=== PATIENT | female | born 1990 | race Two or more races ===

== ENCOUNTER 2021-10-20 17:07 | Emergency (ER) | payer MEDICAID, OTHER ==
[~2021-10-20] VITALS: Ht 157.5 cm; Wt 90.7 kg
[2021-10-20] MEDS ORDERED: OXYCODONE W/ ACETAMINOPHEN 5/325MG TABLET PO ONE (18:00)
[2021-10-20] MEDS ORDERED: ONDANSETRON ODT 4 MG TAB PO ONE (18:00)
[2021-10-20] MEDS ORDERED: TETANUS-DIPTH-ACEL PERTUSSIS 0.5ML SYR Tdap IM ONE (18:00)
[2021-10-20] MEDS ORDERED: ONDANSETRON HCL 4 MG/2 ML VIAL IV ONE ×4 (18:15→23:30)
[2021-10-20] MEDS ORDERED: SODIUM CHLORIDE 0.9% 500 ML IV ONE (18:15)
[2021-10-20] MEDS ORDERED: HYDROmorphone HCL 2 MG/ML VL IV ONE ×3 (18:15→23:30)
[2021-10-20] MEDS ORDERED: ONDANSETRON HCL 4 MG/2 ML VIAL ONE (19:44)
[2021-10-20] MEDS ORDERED: MORPHINE SULFATE 4 MG/ML SYR/VIAL IV ONE (22:15)
[2021-10-20] MEDS ORDERED: ceFAZolin 1GM/50ML 100 ML IV ONE (22:45)
[2021-10-20] MEDS ORDERED: PIPERACILLIN-TAZO 4.5GM 100 ML IV ONE (23:30)
[2021-10-20] MEDS ORDERED: SODIUM CHLORIDE 0.9% 1,000 ML IV ONE (23:30)
[2021-10-21 01:16] VITALS: BP 123/90
== END 2021-10-21 01:32 | disposition short-term general hospital (02) ==
LOC: EDBD 17:07 → ER 17:07
DX: S82.202B Unspecified fracture of shaft of left tibia, initial encounter for open fracture type I or II (principal); S82.452B Displaced comminuted fracture of shaft of left fibula, initial encounter for open fracture type I or II; Z88.0 Allergy status to penicillin; Z20.822 Contact with and (suspected) exposure to COVID-19; W01.0XXA Fall on same level from slipping, tripping and stumbling without subsequent striking against object, initial encounter; Y93.89 Activity, other specified; Y92.89 Other specified places as the place of occurrence of the external cause; Y99.8 Other external cause status
CPT/HCPCS: 29515; 36415; 73590; 87426; 90471; 90715; 93005; 96361; 96365; 96366; 96367; 96375; 96376; 99285; J1170; J2270; J2405; J2543; J7030; J7040

== ENCOUNTER 2025-10-18 08:50 | Emergency (ER) | payer MEDICAID ==
[~2025-10-18] VITALS: Ht 170.2 cm; Wt 100.0 kg
--- NOTE | 2025-10-18 10:33 | ED.PDOC ---
History of Present Illness HPI Comments 35-year-old female presents to the ER with the chief complaint of pelvic pain. Patient reports on being post fall up gastric sleeve surgery 6.5 months ago and recently found a that she was on 10/15/2025(unknown time). Patient had a sudden onset of pelvic pain which radiated to the back last night associated with her passing a blood clot, when the patient use the bathroom earlier this morning she stated on seeing brown while wiping which prompted her to come to the ER. Denies any other symptoms at this time. Denies chills, fever, N/V/D, SOB, CP. No other associated symptoms, modifiers, recent injuries or sick contacts present at this time. Chief Complaint: Pelvic Pain Time Seen by MD: 10:30 Primary Care Provider: RICHIE Reviewed Notes: Nurses Notes, Medications, Allergies Allergies: Coded Allergies: Penicillins (Verified Allergy, Unknown, 10/20/21) Information Source: Patient Mode of Arrival: Ambulatory Severity: Moderate Timing: Hours Duration: Since onset, Hours Prehospital treatment: None Past Medical History PAST MEDICAL HISTORY: Denies Surgical History: Denies all surgeries CAN PILER History: Ovarian Cysts Family History Family History: Reviewed,noncontributory to illness Social History Smoker: Non-Smoker Alcohol: Denies ETOH Use Drugs: Denies Drug Use Lives In: Home Constitutional: denies: chills, diaphoresis, fatigue, fever, malaise, sweats, weakness, others EENTM: denies: blurred vision, double vision, ear bleeding, ear discharge, ear drainage, ear pain, ear ringing, eye pain, eye redness, hearing loss, mouth pain, mouth swelling, nasal discharge, nose bleeding, nose congestion, nose pain, photophobia, tearing, throat pain, throat swelling, voice changes, others Respiratory: denies: cough, hemoptysis, orthopnea, SOB at rest, shortness of breath, SOB with excertion, stridor, wheezing, others Cardiovascular: denies: chest pain, dizzy spells, diaphoresis, Dyspnea on exertion, edema, irregular heart beat, left arm pain, lightheadedness, palpitations, PND, syncope, others Gastrointestinal: denies: abdomen distended, abdominal pain, blood streaked bowels, constipated, diarrhea, dysphagia, difficulty swallowing, hematemesis, melena, nausea, poor appetite, poor fluid intake, rectal bleeding, rectal pain, vomiting, others Genitourinary: reports: , others (Pelvic pain, passed a blood clot yesterday and has the color brown while wiping); denies: abnormal vagina bleeding, burning, dyspareunia, dysuria, flank pain, frequency, hematuria, incontinence, pain, vagina discharge, urgency Neurological: denies: dizziness, fainting, headache, left sided numbness, left sided weakness, numbness, paresthesia, pre-existing deficit, right sided numbness, right sided weakness, seizure, speech problems, tingling, tremors, weakness, others Musculoskeletal: denies: back pain, gout, joint pain, joint swelling, muscle pain, muscle stiffness, neck pain, others Integumetry: denies: bruises, change in color, change in hair/nails, dryness, laceration, lesions, lumps, rash, wounds, others Allergic/Immunocompromised: denies: Difficulty Healing, Frequent Infections, Hives, Itching, others Hematologic/Lymphatic: denies: anemia, blood clots, easy bleeding, easy bruising, swollen glands, others Endocrine: denies: excessive hunger, excessive sweating, excessive thirst, excessive urination, flushing, intolerance to cold, intolerance to heat, unexplained weight gain, unexplained weight loss, others Psychiatric: denies: anxiety, bipolar disorder, depression, hopeless, panic disorder, schizophrenia, sleepless, suicidal, others All Other Systems: Reviewed and Negative Physical Exam Exam Comments Appears uncomfortable General Appearance: No Apparent Distress, Normal HEENT: Normal ENT Inspection, Pharynx Normal, TMs Normal Neck: Full Range of Motion, Non-Tender, Normal, Normal Inspection Respiratory: Chest Non-Tender, Lungs Clear, No Accessory Muscle Use, No Respiratory Distress, Normal Breath Sounds Cardiovascular: No Edema, No JVD, No Murmur, No Gallop, Normal Peripheral Pulses, Regular Rate/Rhythm Breast Exam: Deferred Gastrointestinal: No Organomegaly, Non Tender, No Pulsatile Mass, Normal Bowel Sounds, Soft Genitalia: Deferred Pelvic: Deferred Rectal: Deferred Extremities: No calf tenderness, Normal capillary refill, Normal inspection, Normal range of motion, Non-tender, No pedal edema Musculoskeletal : Apperance: Normal Neurologic: Alert, event marketing intern II-XII nml as Tested, No Motor Deficits, Normal Affect, Normal Mood, No Sensory Deficits Cerebellar Function: Normal Reflexes: Normal Skin: Dry, Normal Color, Warm Lymphatic: No Adenopathy Was a procedure done? Was a procedure done?: No Differential Dx Considerations may include: Threatened miscarriage, ectopic , normal X-Ray, Labs, Meds, VS Vital Signs Date Time Temp Pulse Resp B/P (MAP) Pulse Ox O2 Delivery O2 Flow Rate FiO2 10/18/25 14:29 97.6 96 16 124/95 (105) 97 97.6 10/18/25 11:24 98.3 77 16 121/83 (96) 99 98.3 10/18/25 09:27 Room Air* 0 21 10/18/25 09:27 98.8 74 19 127/87 (100) 99 98.8 10/18/25 08:54 98.2 104 16 170/108 98 98.2 Lab Test 10/18/25 10:34 10/18/25 10:28 Range/Units White Blood Count 7.9 4.4-10.8 10^3/uL Red Blood Count 4.84 4.0-5.20 10^6/uL Hemoglobin 13.2 12.2-16.2 g/dL Hematocrit 40.0 36.0-46.0 % Mean Corpuscular Volume 82.5 80.0-100.0 fL Mean Corpuscular Hemoglobin 27.3 L 28.0-32.0 pg Mean Corpuscular Hemoglobin Concent 33.1 32.0-36.0 g/dL Red Cell Distribution Width 13.4 11.8-14.3 % Platelet Count 323 140-450 10^3/uL Mean Platelet Volume 7.4 6.9-10.8 fL Neutrophils (%) (Auto) 65.7 37.0-80.0 % Lymphocytes (%) (Auto) 24.7 10.0-50.0 % Monocytes (%) (Auto) 8.7 0.0-12.0 % Eosinophils (%) (Auto) 0.4 0.0-7.0 % Basophils (%) (Auto) 0.5 0.0-2.0 % Neutrophils # (Auto) 5.2 1.6-8.6 10 ^3/uL Lymphocytes # (Auto) 1.9 0.4-5.4 10 ^3/uL Monocytes # (Auto) 0.7 0-1.3 10 ^3/uL Eosinophils # (Auto) 0 0-0.8 10 ^3/uL Basophils # (Auto) 0 0-0.2 10 ^3/uL Nucleated Red Blood Cells 0.1 % Sodium Level 140 136-145 mmol/L Potassium Level 3.3 L 3.5-5.1 mmol/L Chloride Level 102 98-107 mmol/L Carbon Dioxide Level 27 20-31 mmol/L Anion Gap 11 5-15 Blood Urea Nitrogen 6 L 9-23 mg/dL Creatinine 0.65 0.550-1.02 mg/dL Glomerular Filtration Rate Calc 118 >90 mL/min BUN/Creatinine Ratio 9.2 L 10.0-20.0 Serum Glucose 97 74-106 mg/dL Calcium Level 9.7 8.7-10.4 mg/dL Beta HCG, Quantitative 1501.1 H 1.5-4.2 mIU/mL Urine Color Light-yellow Yellow Urine Clarity Hazy H Clear Urine pH 6.5 5.0-9.0 Urine Specific [employer] 1.009 1.001-1.035 Urine Protein Negative Negative Urine Ketones Negative Negative Urine Blood 1+ H Negative /uL Urine Nitrite Negative Negative Urine Bilirubin Negative Negative Urine Urobilinogen Normal Negative mg/dL Urine Leukocyte Esterase Negative Negative /uL Urine RBC 2 0 - 4 /hpf Urine Microscopic WBC 1 0-5 /HPF Urine Squamous Epithelial Cells Few <5 /hpf Urine Bacteria Few H None Seen /hpf Urine Mucus Few None Seen Urine Glucose Normal Normal mg/dL Time of 1ST Reevaluation: 11:00 Reevaluation 1ST: Unchanged Patient Education/Counseling: Diagnosis, Treatment, Prognosis Family Education/Counseling: No Family Present SEPSIS Sepsis Screen Date sepsis recognized/suspect: Oct 18, 2025 Time Sepsis recognized/suspect: 0859 Recent Procedure: No On Antibiotic Therapy: No Respiratory Rate >20: No Heart Rate >90: Yes Temp<36 C (96.8 F) or >38.3 C: No SBP <90 or MAP <65 mmHG: No New Acute Mental Status Change: No Is the patient on CPAP, BIPAP,: No Physician Orders Ob Ultrasound Comp Less 14wks (10/18/25 12:42) Ob Trans Vaginal Us (10/18/25 14:15) Vital Signs Date Time Temp Pulse Resp B/P (MAP) Pulse Ox O2 Delivery O2 Flow Rate FiO2 10/18/25 14:29 97.6 96 16 124/95 (105) 97 97.6 10/18/25 11:24 98.3 77 16 121/83 (96) 99 98.3 10/18/25 09:27 Room Air* 0 21 10/18/25 09:27 98.8 74 19 127/87 (100) 99 98.8 10/18/25 08:54 98.2 104 16 170/108 98 98.2 Laboratory Tests Test 10/18/25 10:34 White Blood Count 7.9 10^3/uL (4.4-10.8) Departure 1 Departure Time of Disposition: 18:04 (Patient with threatened miscarriage versus ectopic . Ultrasound shows some started a dermoid complex collection on the left ovary. Patient with lower abdominal pain and . Patient has what appears to be a likely nonviable in the uterus. We will admit the patient for OB follow) Impression: Primary Impression: Ovarian mass, left Additional Impression: Threatened miscarriage Disposition: ADMITTED INPATIENT Admit to: Med Surg Condition: Guarded Critical Care Note Critical Care Time?: No Stability Stability form required: No I personally scribed for DESIRAE FAUST MD ([email or web address]) on 10/18/25 at 10:33. Electronically submitted by Martell Gao ([email or web address]). DESIRAE FAUST MD Oct 18, 2025 10:33
[2025-10-18 11:04] LABS: Chloride 102 mmol/L (98-107); Sodium 140 mmol/L (136-145)
[2025-10-18 11:05] LABS: Anion Gap 11 (5-15); Carbon Dioxide 27 mmol/L (20-31)
[2025-10-18 11:06] LABS: Calcium 9.7 mg/dL (8.7-10.4)
[2025-10-18 11:11] LABS: BUN/Creatinine Ratio 9.2 (10.0-20.0); Blood Urea Nitrogen 6 mg/dL (9-23); Glucose 97 mg/dL (74-106); Hematocrit 40.0 % (36.0-46.0); Hemoglobin 13.2 g/dL (12.2-16.2); Mean Corpuscular Hemoglobin 27.3 pg (28.0-32.0); Mean Corpuscular Volume 82.5 fL (80.0-100.0); Nucleated Red Blood Cells % 0.1 %; Potassium 3.3 mmol/L (3.5-5.1)
[2025-10-18 11:34] LABS: Urine Protein, UAD Negative (Negative)
[2025-10-18 14:29] VITALS: BP 124/95; PULSE 96; RESP 16; TEMP 97.6; O2SAT 97
--- NOTE | 2025-10-18 15:18 | DVH ---
CLINICAL HISTORY: Vaginal bleeding. COMPARISON:None TECHNIQUE: Transvaginal and transabdominal grayscale sonographic imaging of the uterus and ovaries was performed, assisted by color Doppler technique. Duplex Doppler ultrasound of both ovaries was also performed with color flow and spectral waveform analysis.. FINDINGS: The uterus measures 8.2 x 3.9 x 4.7 cm. There is a very small cystic structure in the endometrial canal, suspected gestational sac. Gestational sac diameter measures 0.35 cm, which is out of range for gestational age determination. No yolk sac or pole visualized. 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 Hypoechoic mass at the dorsal aspect of the uterine fundus, likely subserosal fibroid measuring up to 1.8 cm in greatest dimension. Right ovary measures 3.9 x 2.8 x 2.7 cm. Arterial and venous blood flow demonstrated. There is a small 2.2 cm complex structure in the right ovary demonstrating heterogeneous echogenicity, predominantly hyperechoic Left ovary measures 2.4 x 2.2 x 2.7 cm. Arterial and venous blood flow demonstrated. Follicle in the left ovary measures up to 0.4 cm. IMPRESSION: 1. Very small suspected gestational sac in the uterine endometrium. No yolk sac or pole identified. Suspected gestational sac is out of range for dating of the . 2. Subserosal fibroid at the dorsal aspect of the uterine fundus. 3. Small follicle in the left ovary. Complex mass in the right ovary measuring up to 2.2 cm, possibly a complex cyst. Other etiologies, including dermoid could also be considered. 4. 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 5. Additional findings as described above.
== END 2025-10-19 04:06 | disposition left against medical advice (07) ==
LOC: ER 08:50
DX: O20.0 Threatened abortion (principal); O34.81 Maternal care for other abnormalities of pelvic organs, first trimester; N83.202 Unspecified ovarian cyst, left side; Z3A.01 Less than 8 weeks gestation of pregnancy; Z88.0 Allergy status to penicillin
CPT/HCPCS: 36415; 76801; 76817; 80048; 81001; 84702; 85025